=== PATIENT | female | born 1985 | race Caucasian/White ===

== ENCOUNTER 2018-02-17 09:26 | Day surgery (SDC) | payer OTHER ==
[2018-02-14 13:06] VITALS: BMI 23.3
[2018-02-17 10:10] LABS: BASO % 0.4 % (0-2.0); HEMATOCRIT 38.4 % (32.4-45.2); HEMOGLOBIN 13.3 GM/dL (10.7-15.3); LYMPH % 37.9 % (8-40); MCH 32.2 pg (25.7-33.7); MCHC 34.7 g/dl (32.0-36.0); MEAN CELL VOLUME 92.7 fl (80-96); MEAN PLT VOLUME 10.5 fl (7.5-11.1); MONO % 8.3 % (3.8-10.2); NEUT % 50.4 % (42.8-82.8); PLATELET COUNT 158 K/MM3 (134-434); RBC 4.14 M/mm3 (3.60-5.2); WHITE BLOOD COUNT 5.5 K/mm3 (4.0-10.0)
[2018-02-17 10:25] LABS: INR 1.23 (0.83-1.09); PROTHROMBIN TIME (PATIENT) 14.6 SEC (9.7-13.0)
[2018-02-17 13:04] VITALS: TEMP 97.6
[2018-02-17] MEDS ORDERED: ACETAMINOPHEN 325 MG TABLET (FP) PO ONE (13:15)
[2018-02-17] MEDS ORDERED: ACETAMINOPHEN 325 MG TABLET (FP) ONE (13:20)
[2018-02-17 14:07] VITALS: BP 113/56; PULSE 84
--- NOTE | 2018-02-18 17:33 | PATH ---
Surgical Pathology Report Patient Name: MENA GARCÍA [facility]. Rec. #: [id number] /Age/Gender: 1985 (Age: 33) / F Account: [id number] Location: RADIOLOGY INTER Taken: 02/17/2018 Received: 02/17/2018 Reported: 02/18/2018 Physicians: Jessica Chinchilla M.D. 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 NO LYMPHOID TISSUE IDENTIFIED. Comment: Scant evidence. Histologic sections show small epithelial/myoepithelial cells in a myxoid stroma. Significant cytologic atypia is not identified. Immunohistochemical stains performed and interpreted at [facility] show CK7 is positive in epithelial cells, while p63 label myoepithelial cells. Overall histomorphology and immunophenotype is consistent with a salivary gland neoplasm, favor pleomorphic adenoma. History of pleomorphic adenoma noted. Suggest clinical and radiological correlation. Electronically Signed Laila Haas M.D. Addendum Reported: 02/18/2018 Addendum Diagnosis Concurrent flow cytometry sent to [facility] ([id number]) virtually has no immunophenotypic evidence of B cells identified in this very low viability and cell yield sample. See [facility] report [id number] for additional details. Laila Haas M.D. Gross Description Received in formalin labeled "right neck lymph node," is a 0.6 cm in length x 0.1 cm in diameter caldwell, cylindrical portion of soft tissue. The specimen is submitted in toto in one cassette. There is additional tissue received in RPMI solution and sent for flow cytometry. /02/17/201802/17/2018
== END 2018-02-17 14:07 | disposition home or self-care (01) ==
LOC: JRADIR 09:26
PROVIDERS: ATTEND Specialist
PROC: 07B13ZX Excision of Right Neck Lymphatic, Percutaneous Approach, Diagnostic (ICD-10-PCS; principal; 2018-02-17)
DX: D36.0 Benign neoplasm of lymph nodes (principal)
CPT/HCPCS: 36415; 76942-TC; 84703; 85025; 85610; 87899; 88305-TC; 88307-TC; 88341-TC; 88342-TC

== ENCOUNTER 2018-03-14 10:15 | Day surgery (SDC) | payer OTHER ==
[2018-03-13 11:59] VITALS: BMI 23.3
--- NOTE | 2018-03-14 09:17 | HP ---
History & Physical Update - History History: No Change - Physical Physical: No Change - Assessment Assessment: No Change - Plan Plan: No Change (Recurrent right submandibular pleomorphic adenoma. Plan : Excision.)
[2018-03-14] MEDS ORDERED: PROPOFOL 20 ML ONE ×2 (10:32→12:03)
[2018-03-14] MEDS ORDERED: fentaNYL CITRATE 250 MCG/5 ML VIAL ONE (10:32)
[2018-03-14] MEDS ORDERED: MIDAZOLAM HCL 2 MG/2 ML SINGLE DOSE VIAL ONE (10:32)
[2018-03-14] MEDS ORDERED: ROCURONIUM BROMIDE 50 MG/5 ML VIAL ONE (10:32)
[2018-03-14] MEDS ORDERED: SUCCINYLCHOLINE CHLORIDE 200 MG/10 ML VIAL ONE (10:34)
[2018-03-14] MEDS ORDERED: SCOPOLAMINE HYDROBROMIDE 1 PATCH PATCH.TD72 ONE (11:22)
[2018-03-14] MEDS ORDERED: DESFLURANE GAS 240 ML BOTTLE IH ONE (11:22)
[2018-03-14] MEDS ORDERED: ceFAZolin SODIUM 1 GM VIAL IVPB ONE (12:25)
[2018-03-14] MEDS ORDERED: DEXAMETHASONE SOD PHOSPHATE 4 MG/1 ML VIAL ONE (12:53)
[2018-03-14] MEDS ORDERED: ONDANSETRON 4 MG/2 ML VIAL IVPUSH PRN (13:58)
[2018-03-14] MEDS ORDERED: KETOROLAC TROMETHAMINE 30 MG/1 ML VIAL IM ONE (13:59)
[2018-03-14] MEDS ORDERED: ACETAMINOPHEN 1000 MG/100 ML VIAL (NON FORMULARY) IVPB ONE (13:59)
[2018-03-14] MEDS ORDERED: LACTATED RINGERS SOLUTION 1,000 ML IV SCH (14:00)
[2018-03-14] MEDS ORDERED: ACETAMINOPHEN INJECTION 100 ML IVPB ONE (14:03)
--- NOTE | 2018-03-14 14:06 | OP ---
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 Facial nerve monitoring. Findings: Tumor attached to the lower pole of the right parotid gland , below and behind the angle of the mandible. Tumor excised with surrounding normal parotid tissue,posterior to the posterior belly of the digastric muscle. Facial nerve monitored. Post-Operative Diagnosis: Other (Salivary gland tumor from the lower pole of the right parotid gland.) Surgeon: Paresh Patino Style Advisor: Marcela Simmons Anesthesiologist/FLIGHT LINE SERVICE ATTENDANT: Mike Sanchez Anesthesia: General Specimens Removed: Tumor in right parotid gland Estimated Blood Loss (mls): 5 Operative Report Dictated: Yes
--- NOTE | 2018-03-14 15:33 | SURG ---
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 Facial nerve monitoring. I was present for the entirety of the operative procedure. For further detail, please refer to operative report. Visit type - Case Type Case Type: Scheduled - Emergency Emergency Visit: No - New patient This patient is new to me today: Yes Date on this admission: 03/14/18
[2018-03-14] MEDS ORDERED: oxyCODONE HCL 5 MG TABLET PO PRN (16:19)
[2018-03-14] MEDS ORDERED: ONDANSETRON 4 MG/2 ML VIAL ONE (16:22)
[2018-03-14 17:14] VITALS: TEMP 97.8
[2018-03-14 18:53] VITALS: BP 129/63; PULSE 90
--- NOTE | 2018-03-15 06:18 | OP ---
DATE OF OPERATION: 03/14/2018 PREOPERATIVE DIAGNOSIS: Recurrent pleomorphic adenoma of the right salivary gland in the right neck. POSTOPERATIVE DIAGNOSIS: Recurrent pleomorphic adenoma of the right salivary gland in the right neck. OPERATIVE PROCEDURE: Right partial parotidectomy, excision of parotid neoplasm and facial nerve monitoring. SURGEON: Lara Patino MD ASSOCIATE QUALITY ENGINEER: VINEET Holt ANESTHESIA: General anesthesia. ANESTHESIOLOGIST: Mike Sanchez MD OPERATIVE DESCRIPTION: This 33-year-old woman had a mass behind and below the angle of the right mandible. This nodule was present for almost a year. Patient had a previous total thyroidectomy and an old pleomorphic adenoma in the same location as the current mass. Patient had a core biopsy of this lesion that suggested a recurrent pleomorphic adenoma. Patient was brought in for excision of the lesion. Consent was obtained. Risks, benefits and complications were discussed with the patient including facial nerve weakness. Patient was given general anesthesia. The Nerveana facial nerve monitoring device was used during the procedure. The neck was painted and draped. A curvilinear skin incision was made about 2 fingerbreadths below the angle of the mandible and below the lower margin of the mandible starting over the sternocleidomastoid muscle making a gentle curved forward. The incision was deepened through the skin, subcutaneous tissue and the platysma muscle. The superior flap was then placed between the platysma and the deep cervical fascia up to the upper border of the palpable lesion. The inferior flap was also raised beneath. The inferior edge of the mass was then palpated. This was carefully then mobilized anteriorly and cephalad. The facial nerve was monitored by stimulating with the stimulator. There was no evidence of facial nerve injury throughout the procedure. The mass appeared to arise from the posterior edge on the inferior pole of the right parotid gland. It was completely mobilized and excised with surrounding normal parotid salivary tissue. All bleeding vessels were clipped with hemoclips. The specimen was sent to Pathology. Hemostasis was satisfactory at the completion of the procedure. The nerve and 2 branches were completely preserved and left intact. At the completion of the procedure the wound was closed in layers after irrigation and maintaining hemostasis. The deep cervical fascia was approximated with buried interrupted 3-0 Vicryl sutures. The platysma was approximated with buried interrupted 4-0 Biosyn sutures. The subdermal fat was also approximated with buried interrupted 4-0 Biosyn sutures and skin approximated with continuous 4-0 Biosyn sutures in a running subcuticular fashion. Dermabond was applied across the skin edges. Patient tolerated the procedure well, was extubated and transferred to the recovery room in satisfactory and stable condition. Jessica LYLE/[id number]
--- NOTE | 2018-03-17 18:18 | PATH ---
Surgical Pathology Report Patient Name: MENA GARCÍA [facility]. Rec. #: [id number] /Age/Gender: 1985 (Age: 33) / F Account: [id number] Location: AMBULATORY SURG Taken: 03/14/2018 Received: 03/14/2018 Reported: 03/18/2018 Physicians: Lara Patino M.D. Specimen(s) Received RIGHT SUBMANDIBULAR TUMOR Clinical History Right submandibular recurrent tumor Final Diagnosis SUBMANDIBULAR MASS, RIGHT, EXCISION: RECURRENT PLEOMORPHIC ADENOMA, MULTIFOCAL AND MULTINODULAR GROWTH PATTERN. NEOPLASM EXTENDS TO INKED SURGICAL MARGINS IN FEW FOCI (UNDERSURFACE/BLUE). SEE COMMENT. Comment: The neoplasm shows multiple tumor nodules comprised of epithelial and myoepithelial cells imbedded in a chondromyxoid stroma present within the salivary gland and surrounding soft tissue. No significant cytologic atypia or necrosis is identified. Prior history of pleomorphic adenoma noted. Prior material is noted. Electronically Signed Liala Haas M.D. Addendum Reported: 03/18/2018 Addendum Diagnosis Findings discussed with Dr. Patino. Laila Haas M.D. Gross Description Received fresh labeled "right submandibular mass," is a 4.5 x 1.4 x 1.1 cm caldwell-red, irregular, unoriented portion of soft tissue. The undersurface is inked blue and the specimen is serially sectioned. Sectioning reveals a multifocal, caldwell-yellow, focally firm mass abutting the radial margin. The remaining parenchyma is caldwell-yellow, lobulated and unremarkable. The specimen is entirely and sequentially submitted in 7 cassettes. DL/03/14/2018 saudi/03/14/2018
== END 2018-03-14 17:45 | disposition home or self-care (01) ==
LOC: JASUSAT 10:15
PROVIDERS: ATTEND Specialist
PROC: 0CB80ZZ Excision of Right Parotid Gland, Open Approach (ICD-10-PCS; principal; 2018-03-14 11:30)
DX: D11.0 Benign neoplasm of parotid gland (principal)
CPT/HCPCS: 84703; 88307-TC; 94760; J0131